=== PATIENT | male | born 1945 | race Caucasian/White ===

== ENCOUNTER → 2018-09-04 | Day surgery (SDC) | payer MEDICARE, OTHER ==
[2018-09-03 15:38] VITALS: BMI 34.2
[~2018-09-04] MED LIST: PROPOFOL 20 ML ONE; PROPOFOL 200 MG/20 ML VIAL ONE
--- NOTE | 2018-09-04 10:07 | ECHO ---
CARDIOLOGY PROCEDURE NOTE: Date: 09/04/18 PROCEDURE: Transesophageal echocardiogram. INDICATION FOR PROCEDURE: This is a 72-year-old gentleman who had recurrence of atrial fibrillation. He had been taken off his antiarrhythmic medications. He was then placed back on these medications, as well as oral anticoagula tion. He was advised to undergo a repeat cardioversion and LEYLA to determine if he had any left atrial or left atrial appendage thrombus prior to undergoing electrical cardioversion of his atrial fibrill ation. PROCEDURE DETAILS: The patient was taken to the recovery area where he was given short-acting propofol. The patient was in atrial fibrillation when beginning the procedure. The transesophageal probe was easily passed down the distal esophagus. IMPRESSION: 1. Normal left ventricular systolic function. Ejection fraction estimated at approximately 60%. 2. Mild aortic valve sclerosis. 3. Trace aortic valve regurgitation. 4. Evidence of left atrial or left atrial appendage thrombus. 5. Flow in the left atrial appendage, greater than 4 meters/second. 6. Mild mitral valve regurgitation. 7. Mild tricuspid valve regurgitation. 8. No evidence of patent foramen ovale.
--- NOTE | 2018-09-04 10:09 | OP ---
CARDIOLOGY PROCEDURE NOTE: Date: 09/04/18 PROCEDURE: Electrical cardioversion. DETAILS: This is a 72-year-old patient with history of atrial fibrillation who underwent a transesophageal ech ocardiogram and was found to have no evidence of left atrial or left atrial appendage thrombus. He wa s advised to undergo electrical cardioversion of the atrial fibrillation. Using one attempt at 250 jovana ules, the patient was successfully converted from his atrial fibrillation back to normal sinus rhythm with heart rate in the 80s. No complications or difficulties were encountered.
--- NOTE | 2018-09-04 10:11 | DIS ---
This is a 72-year-old patient with a history of recurrent atrial fibrillation who was advised to unde rgo a transesophageal echocardiogram and electrical cardioversion of his atrial fibrillation back to sinus rhythm after he was started back on his oral anticoagulation as well as antiarrhythmic medicati ons in the form of flecainide. His other diagnoses include hyperlipidemia, nephrolithiasis, degenerat elizabeth disc disease, hypertension, a deep venous thrombosis in 2017 to the right lower extremity. Discha rge diagnosis is the same. Procedures in the hospital included a transesophageal echocardiogram, as well as electrical cardiover lily of atrial fibrillation back to sinus rhythm. Discharge medications will be Avapro 150 mg q.d., Tramadol 50 mg as needed q6 hours prn, Gabapentin 3 00 mg q.a.m. up to 4 tablets, irbesartan 150 mg q.d., meloxicam 7.5 mg q.d., Xarelto 20 mg q.d., and also is taking Celebrex 1 capsule 2 times a day as needed. He also is taking digoxin 0.125 mg PO q.d. and flecainide 50 mg PO bid. The patient tolerated the procedures well today, the transesophageal echocardiogram and the electrica l cardioversion. There were no significant complications encountered. He was given short-acting propo fol for the procedure. Once he is awake and alert, he will be discharged to home without any other co mplications or difficulties expected. I will see him back in the office in the next 2-4 weeks.
--- NOTE | 2018-09-04 22:32 | EKG ---
Test Reason : POST CARDIOVERSION Blood Pressure : / mmHG Vent. Rate : 073 BPM Atrial Rate : 073 BPM P-R Int : 216 ms QRS Dur : 106 ms QT Int : 362 ms P-R-T Axes : 053 -15 029 degrees QTc Int : 398 ms Sinus rhythm with 1st degree A-V block Otherwise normal ECG No previous ECGs available Confirmed by Mark ANTONIO ([id number]) on 09/04/2018 10:32:11 PM Referred By: PACO Confirmed By:Mark ANTONIO
== END ==
LOC: CCL 06:49
PROVIDERS: ATTEND Internal Medicine Cardiovascular Disease
PROC: 5A2204Z Restoration of Cardiac Rhythm, Single (ICD-10-PCS; principal; 2018-09-04)
PROC: B246ZZ4 Ultrasonography of Right and Left Heart, Transesophageal (ICD-10-PCS; 2018-09-04)
DX: I48.0 Paroxysmal atrial fibrillation (principal); I35.8 Other nonrheumatic aortic valve disorders; I36.1 Nonrheumatic tricuspid (valve) insufficiency; I34.0 Nonrheumatic mitral (valve) insufficiency; I10 Essential (primary) hypertension; E78.2 Mixed hyperlipidemia; M19.90 Unspecified osteoarthritis, unspecified site; Z87.442 Personal history of urinary calculi; Z96.652 Presence of left artificial knee joint; Z90.89 Acquired absence of other organs; Z88.5 Allergy status to narcotic agent; Z79.01 Long term (current) use of anticoagulants; Z79.899 Other long term (current) drug therapy; Z98.890 Other specified postprocedural states
CPT/HCPCS: 92960; 93005; 93010; 93312; J2704

== ENCOUNTER 2019-05-17 11:00 | Day surgery (SDC) | payer MEDICARE, OTHER ==
[2019-05-16 10:15] VITALS: BMI 31.1
[2019-05-17 12:05] LABS: #Eosinphils 0.5 thou/uL (0.0-0.7); #Lymphocytes 1.6 thou/uL (1.20-3.40); #Monocytes 0.5 thou/uL (0.11-0.59); #Neutrophils 4.7 thou/uL (1.40-6.50); %Basophils 0.5 % (0.0-1.0); %Eosinophils 6.8 % (0.0-10.0); %Lymphocytes 21.6 % (21.0-51.0); %Monocytes 6.3 % (0.0-10.0); %Neutrophils 64.8 % (42.0-75.0); Hemoglobin 14.8 g/dL (14.0-18.0); Mean Corpuscular HGB CONC 33.5 g/dL (32.0-36.0); Mean Corpuscular Hemoglobin 30.4 pg (27.0-31.0); Mean Corpuscular Volume 90.8 fL (78.0-98.0); Mean Platelet Volume 8.1 fL (7.4-10.4); Platelet Count 163 thou/uL (130-400); RBC Distribution Width 13.3 % (11.5-14.5); Red Blood Cell (RBC) Count 4.87 mill/uL (4.70-6.10); White Blood Cell (WBC) Count 7.3 thou/uL (4.8-10.8)
[2019-05-17 12:21] LABS: Anion Gap 12 mmol/L (10-20); BUN (Urea Nitrogen) 22 mg/dL (8.4-25.7); Calc. Creatinine Clearance 82 mL/min (70-130); Calcium 9.8 mg/dL (7.8-10.44); Carbon Dioxide 25 mmol/L (23-31); Chloride 104 mmol/L (98-107); Estimated GFR-MDRD 61; Glucose 90 mg/dL (83-110); Potassium 4.9 mmol/L (3.5-5.1); Sodium 136 mmol/L (136-145)
[2019-05-17] MEDS ORDERED: PROPOFOL 20 ML ONE (12:23)
--- NOTE | 2019-05-17 15:59 | OP ---
DATE OF PROCEDURE: 05/17/19 SURGEON: Adriana Rodriguez M.D. PREOPERATIVE DIAGNOSIS: Atrial fibrillation. PROCEDURE: Electrical cardioversion. INDICATION FOR PROCEDURE: This is a 73-year-old gentleman with atrial fibrillation. Was advised to undergo electrical cardiover lily for the atrial fibrillation. He has been on medical management with anticoagulation as well as f lecainide and digoxin. CARDIOVERSION The patient was brought to the recovery area today where he underwent short acting propofol. Using one attempt at 200 joules, he was successfully converted from his atrial fibrillation back to n ormal sinus rhythm. There were no complications or difficulties encountered. The patient tolerated th e procedure well.
--- NOTE | 2019-05-18 03:19 | DIS ---
DATE OF ADMISSION: 05/17/2019 DATE OF DISCHARGE: 05/17/2019 Date of his outpatient procedure was 05/17/2019. He was brought in as an outpatient to undergo electrocardioversion of atrial fibrillation. ADMITTING DIAGNOSES: Include degenerative joint disease, hyperlipidemia, history of nephrolithiasis, osteoarthritis, history of hypertension, and history of DVT in the past. DISCHARGE DIAGNOSES: Include degenerative joint disease, hyperlipidemia, history of nephrolithiasis, osteoarthritis, history of hypertension, and history of DVT in the past. He underwent successful electrocardioversion of atrial fibrillation. PROCEDURE: Electrocardioversion externally of his atrial fibrillation back to normal sinus rhythm using one attempt at 200 joules. He was successfully converted back to sinus rhythm with a heart rate in the 60s. DISCHARGE MEDICATIONS: Include; 1. Avapro 150 mg once a day. 2. Tramadol 50 mg once every 6 hours p.r.n. as needed. 3. Gabapentin 300 mg once in the morning and he takes 4 tablets by mouth in the evening. 4. Meloxicam 7.5 mg once a day. 5. Flecainide 50 mg b.i.d. 6. Xarelto 20 mg once a day with an evening meal. 7. Digoxin 0.25 mg daily. FOLLOWUP: His followup will be with me in the next 2-4 weeks in the office. He will continue his routine followup with his primary care physician, Dr. Sean Phelps. HOSPITAL COURSE: This very pleasant gentleman was found to have been in the office for routine followup for his atrial fibrillation. He was found to be in atrial fibrillation at his last office in the end of March and he had some hematuria as well as hematochezia. He was in the emergency room and has had not any problems since that time, but was in atrial fibrillation. He was advised to undergo electrocardioversion of atrial fibrillation. This was performed with no difficulties or complications using short acting propofol at one attempt at 200 joules. He was successfully converted back to sinus rhythm. We will continue the present medications. We will see him back in the office. Hopefully, he will maintain sinus rhythm. Job ID: [id number]
== END 2019-05-17 14:40 | disposition home or self-care (01) ==
LOC: SDC 11:00
PROVIDERS: ATTEND Internal Medicine Cardiovascular Disease
PROC: 5A2204Z Restoration of Cardiac Rhythm, Single (ICD-10-PCS; principal; 2019-05-17)
DX: I48.91 Unspecified atrial fibrillation (principal); M19.90 Unspecified osteoarthritis, unspecified site; E78.5 Hyperlipidemia, unspecified; I10 Essential (primary) hypertension; Z79.01 Long term (current) use of anticoagulants; Z79.899 Other long term (current) drug therapy; Z86.718 Personal history of other venous thrombosis and embolism; Z87.442 Personal history of urinary calculi; Z88.6 Allergy status to analgesic agent; Z88.5 Allergy status to narcotic agent
CPT/HCPCS: 80048; 85025; 92960; 93005; 93010; J2704

== ENCOUNTER 2019-08-14 09:13 | Observation (INO) | payer MEDICARE, OTHER ==
[2019-08-13 13:32] VITALS: BMI 30.9
[2019-08-14 10:19] LABS: #Basophils 0.1 thou/uL (0.0-0.2); #Eosinphils 0.6 thou/uL (0.0-0.7); #Lymphocytes 1.4 thou/uL (1.20-3.40); #Monocytes 0.5 thou/uL (0.11-0.59); #Neutrophils 4.6 thou/uL (1.40-6.50); %Basophils 0.9 % (0.0-1.0); %Eosinophils 8.3 % (0.0-10.0); %Lymphocytes 19.8 % (21.0-51.0); %Monocytes 7.2 % (0.0-10.0); %Neutrophils 63.8 % (42.0-75.0); Hemoglobin 14.5 g/dL (14.0-18.0); Mean Corpuscular Hemoglobin 31.3 pg (27.0-31.0); Mean Corpuscular Volume 92.1 fL (78.0-98.0); Mean Platelet Volume 8.2 fL (7.4-10.4); Platelet Count 158 thou/uL (130-400); RBC Distribution Width 12.6 % (11.5-14.5); Red Blood Cell (RBC) Count 4.63 mill/uL (4.70-6.10); White Blood Cell (WBC) Count 7.2 thou/uL (4.8-10.8)
[2019-08-14 10:25] LABS: INR-International Normal Ratio 1.2; Prothrombin Time 15.6 SEC (12.0-14.7)
[2019-08-14 10:26] LABS: PTT 38.3 SEC (22.9-36.1)
[2019-08-14 10:27] LABS: Anion Gap 13 mmol/L (10-20); BUN (Urea Nitrogen) 31 mg/dL (8.4-25.7); Calc. Creatinine Clearance 73 mL/min (70-130); Calcium 9.4 mg/dL (7.8-10.44); Carbon Dioxide 20 mmol/L (23-31); Chloride 108 mmol/L (98-107); Estimated GFR-MDRD 54; Glucose 119 mg/dL (83-110); Potassium 4.3 mmol/L (3.5-5.1); Sodium 137 mmol/L (136-145)
[2019-08-14] MEDS ORDERED: Heparin 10,000 UNITS/1 ML VIAL ONE ×3 (10:46→12:54)
[2019-08-14] MEDS ORDERED: Heparin 25,000 units/D5W 500 ML ONE (10:46)
[2019-08-14] MEDS ORDERED: Isoproterenol 0.2 MG/1 ML AMP ONE (10:46)
[2019-08-14] MEDS ORDERED: Succinylcholine Chloride 20 MG/ML 10 ml SYRINGE FS ONE (10:47)
[2019-08-14] MEDS ORDERED: Lidocaine 1% PF 5 ML VIAL ONE ×2 (10:47)
[2019-08-14] MEDS ORDERED: PROPOFOL 200 MG/20 ML VIAL ONE (10:47)
[2019-08-14] MEDS ORDERED: Glycopyrrolate 0.2 MG/ML 5 ML SYRINGE ONE (10:47)
[2019-08-14] MEDS ORDERED: Ondansetron PF 4 MG/2 ML Vial ONE (10:47)
[2019-08-14] MEDS ORDERED: Metoclopramide HCl 10 MG/2 ML VIAL ONE (10:47)
[2019-08-14] MEDS ORDERED: Rocuronium Bromide 10 MG/ML (10ML VIAL) ONE (10:47)
[2019-08-14] MEDS ORDERED: Fentanyl 100 MCG/2 ML VIAL ONE ×3 (11:12→16:50)
[2019-08-14] MEDS ORDERED: SUGAMMADEX SODIUM 200 MG/2 ML VIAL ONE (12:45)
[2019-08-14] MEDS ORDERED: Protamine Sulfate 50 MG/5 ML VIAL ONE ×2 (14:30→15:13)
--- NOTE | 2019-08-14 16:36 | OP ---
DATE OF PROCEDURE: 08/14/2019 PROCEDURES PERFORMED: Electrophysiology study and radiofrequency ablation. REASON FOR PROCEDURE: Mr. Antunez is a very pleasant 73-year-old gentleman with prior history of paroxysmal, more recently persistent atrial fibrillation despite flecainide. He underwent a LEYLA prior to procedure, demonstrating no intracardiac clots, left atrial size about 4.3 cm. DESCRIPTION OF PROCEDURE: The patient received general anesthesia by Anesthesia specialist. After adequate level of sedation achieved, the left and right femoral veins were cannulated under ultrasound guidance. On the left femoral vein, an 11-British sheath was used to advance an intracardiac echocardiogram probe to the right atrium, which was used to monitor the pericardial space, catheter manipulation throughout the procedure as well as a transseptal puncture. Also from the left femoral vein, a Preface sheath was used to advance a 20-pole catheter to the right atrium and CS position. From the right side initially, two 8-British short sheaths were used to advanced a ThermoCool SFST catheter to the right atrium and 3D map of the right atrium, His bundle, and CS positions were obtained. Following that, the short sheath was exchanged to two SL1 transseptal sheaths, which were used to perform a transseptal puncture with the help of a powered Jenkins needle under ultrasound and fluoroscopic monitoring. IV heparin was initiated in a bolus and drip fashion prior to the puncture and it was given throughout the procedure to keep ACT over 350. Following that, through the SL1 sheath, a ThermoCool SFST catheter advanced to the left atrium as well as a 20-pole Lasso catheter as well. 3D map of the left atrium was obtained. Pulmonary venous isolation procedure as well as posterior wall isolation was performed utilizing wide area circumferential ablation around the veins as well as a roof line and then inferoposterior line to isolate the posterior wall. Throughout the posterior wall ablations, esophageal temperature was monitored closely and if any heating occurred, additional irrigation was performed in the area. At the end of the case, we achieved four-vein pulmonary vein isolation and posterior wall isolation. The patient remained in atrial fibrillation. Cardioversion was performed at this point, achieving sinus rhythm. Isuprel was initiated. Also, the ablation catheter advanced to the left ventricle, and left ventricular pacing was performed, ruling out accessory pathway. No VA conduction was noted. Also, basic EP study was performed at this point and following findings were noted. HV interval was 45 milliseconds, AH 144 milliseconds, QRS is narrow. The VA conduction not present. AV Wenckebach cycle is 280 millisecond. No definite dual AV nicole physiology was seen. Burst atrial pacing down to 180 milliseconds did not reinduce atrial arrhythmias. At this point, the catheter and sheaths were removed from the left side. Heparin was stopped. The heparin was also reversed with protamine administration. The long sheaths were exchanged for short sheaths and Vascade closure was performed under ultrasound guidance in all 4 femoral venous access sites. The patient left the labor mediator with no obvious complications and was hemodynamically stable. A total of 22 minutes and 39 seconds ablation was delivered with total of 53 separate lesions. 40 page of energy were used throughout the procedure. CONCLUSION: 1. Successful isolation of all 4 pulmonary veins with wide area circumferential lesions. 2. Posterior wall isolation with roof line and inferoposterior line also achieved. 3. Sinus rhythm achieved with cardioversion, and atrial fibrillation and other atrial arrhythmias were not re-inducible with burst atrial pacing, on and off Isuprel. 4. Any reconnections were re-ablated on Isuprel. 5. No evidence of accessory pathway. 6. Normal AV nicole and His-Purkinje function and sinus nicole function noted. PLAN: Continue oral anticoagulation. Stop flecainide. Monitor for recurrent atrial arrhythmias. Job ID: [id number]
[2019-08-14] MEDS ORDERED: traMADol HCl 50 MG TAB PO PRN (16:37)
[2019-08-14] MEDS ORDERED: Acetaminophen 500 MG TAB PO PRN (16:39)
[2019-08-14] MEDS ORDERED: Acetaminophen/Codeine 30-300mg Tablet PO PRN ×2 (16:45)
[2019-08-14] MEDS ORDERED: Gabapentin 300 MG CAP PO PRN (16:46)
[2019-08-14] MEDS ORDERED: Rivaroxaban 10 MG TAB PO SCH (17:00)
[2019-08-14] MEDS ORDERED: Gabapentin 400 MG CAP PO SCH (21:00)
--- NOTE | 2019-08-14 23:18 | ECHO ---
DATE OF PROCEDURE: 08/14/19 REFERRING PHYSICIAN: Dr. Adriana Rodriguez REASON FOR PROCEDURE: The patient is a pleasant 73-year-old gentleman with prior history of paroxysmal now persisting atria l fibrillation despite Flecainide who has no thrombus on the LEYLA in 09/04/18. Here for a planned pulmon susan venous isolation procedure. He has been on Xarelto but had a three day interruption with ongoing A-fib and hence LEYLA to rule out intracardiac clots. PROCEDURE: The patient received Propofol by Anesthesia specialist. After adequate level of sedation achieved, a standard transesophageal echocardiogram probe was passed into the esophagus without diff iculty. Patient tolerated the procedure well, no complications noted. RESULTS: Left atrium is moderately enlarged about 4.3 cm in horizontal diameter. The left atrial appendage we ll visualized contains no clots. The left atrial appendage velocities up to 50 cm per second, which i s adequate. Four out of four pulmonary veins were well seen. The interatrial septum is free of defe ct. The mitral valve has no regurgitation. Aortic valve has three leaflets with mild central regurgi tation seen. Tricuspid valve and pulmonary valve is also nonregurgitant. No valve stenosis identified . Right sided chambers are normal in size. Left ventricular systolic function is preserved. Mild LVH seen. Normal chamber sizes noted otherwise. Pericardial space without effusion. The visualized porti on of ascending and descending aorta with mild dilation but no significant aneurysm, 3.5 cm in horizo ntal diameter is seen. There is also no significant atheroma noted in the ascending aorta or descendi ng aorta. CONCLUSION: 1. No intracardiac clots. 2. Moderate left atrial enlargement. 3. Mild aortic regurgitation. No other valvular heart disease. 4. Normal left ventricular systolic function with mild LVH only. PLAN: Proceed with the ablation.
[2019-08-15 08:25] VITALS: BP 134/82; TEMP 98.2
[2019-08-15] MEDS ORDERED: Meloxicam 7.5 MG TAB PO SCH (09:00)
[2019-08-15] MEDS ORDERED: Losartan 25 MG TAB PO SCH (09:00)
[2019-08-15] MEDS ORDERED: Multivit, Therapeutic 1 TAB PO SCH (09:00)
[2019-08-15] MEDS ORDERED: Digoxin 0.125 MG TAB PO SCH (09:00)
--- NOTE | 2019-08-15 12:12 | EKG ---
Test Reason : Blood Pressure : / mmHG Vent. Rate : 071 BPM Atrial Rate : 071 BPM P-R Int : 204 ms QRS Dur : 108 ms QT Int : 386 ms P-R-T Axes : 039 -05 038 degrees QTc Int : 419 ms Normal sinus rhythm Normal ECG When compared with ECG of 17-MAY-2019 11:22, (Unconfirmed) Sinus rhythm has replaced Atrial fibrillation ST no longer depressed in Inferior leads Confirmed by HYUN CHING, STiffany (4) on 08/15/2019 12:12:38 PM Referred By: KARTHIKEYAN Confirmed By:DR. Michael PURVIS MD
--- NOTE | 2019-08-15 12:13 | EKG ---
Test Reason : Blood Pressure : / mmHG Vent. Rate : 077 BPM Atrial Rate : 077 BPM P-R Int : 220 ms QRS Dur : 100 ms QT Int : 356 ms P-R-T Axes : 048 -04 040 degrees QTc Int : 402 ms Sinus rhythm with 1st degree A-V block Otherwise normal ECG When compared with ECG of 14-AUG-2019 16:06, (Unconfirmed) No significant change was found Confirmed by HYUN CHING, . STiffany (4) on 08/15/2019 12:13:10 PM Referred By: [facility] Confirmed By:DR. Michael PURVIS MD
== END 2019-08-15 12:40 | disposition home or self-care (01) ==
LOC: CCL 09:13 → 2SW 16:00
PROVIDERS: ADMIT Internal Medicine Cardiovascular Disease; ATTEND Internal Medicine Cardiovascular Disease
PROC: 02583ZZ Destruction of Conduction Mechanism, Percutaneous Approach (ICD-10-PCS; principal; 2019-08-14)
PROC: B24BZZ4 Ultrasonography of Heart with Aorta, Transesophageal (ICD-10-PCS; 2019-08-14)
DX: I48.19 Other persistent atrial fibrillation (principal); I10 Essential (primary) hypertension; E78.5 Hyperlipidemia, unspecified; M19.90 Unspecified osteoarthritis, unspecified site; Z79.01 Long term (current) use of anticoagulants; Z79.1 Long term (current) use of non-steroidal anti-inflammatories (NSAID); Z79.899 Other long term (current) drug therapy; Z87.442 Personal history of urinary calculi; Z88.5 Allergy status to narcotic agent
CPT/HCPCS: 76942; 80048; 85025; 85347 ×2; 85610; 85730; 93312; 93613; 93622; 93623; 93656; 93657; 93662; C1731; C1732 ×3; C1759; C1769; 93005; 93010; G0378; J1644; J2001; J2405; J2704; J2720; J2765; J3010

== ENCOUNTER 2020-07-22 08:00 | Outpatient (CLI) | payer MEDICARE, OTHER ==
[2020-07-22 10:15] LABS: Hemoglobin 13.6 g/dL (13.5-17.5); Mean Corpuscular HGB CONC 33.3 g/dL (32.0-36.0); Mean Corpuscular Hemoglobin 30.2 pg (27.0-33.0); Mean Corpuscular Volume 90.5 fl (81.2-95.1); Mean Platelet Volume 10.1 fl (7.4-10.4); Platelet Count 145 10x3/uL (150-450); RBC Distribution Width 13.7 % (11.5-14.5); Red Blood Cell (RBC) Count 4.51 10x6/uL (4.32-5.72); White Blood Cell (WBC) Count 6.8 10x3/uL (3.5-10.5)
[2020-07-22 10:31] LABS: Anion Gap 16 mmol/L (10-20); BUN (Urea Nitrogen) 32 mg/dL (8.4-25.7); Calc. Creatinine Clearance 0 mL/min (70-130); Calcium 9.5 mg/dL (7.8-10.44); Carbon Dioxide 20 mmol/L (23-31); Chloride 106 mmol/L (98-107); Glucose 97 mg/dL (83-110); Sodium 137 mmol/L (136-145)
[2020-07-22 10:42] LABS: INR-International Normal Ratio 1.1; PTT 34.9 sec (22.0-33.0)
[2020-07-22 20:40] LABS: SARS-CoV-2 PCR by NAA Not Detected (NotDetected)
== END 2020-07-22 08:01 | disposition home or self-care (01) ==
LOC: LABBT 08:00
PROVIDERS: ATTEND Internal Medicine Cardiovascular Disease
DX: Z01.812 Encounter for preprocedural laboratory examination (principal); Z20.822 Contact with and (suspected) exposure to COVID-19; I48.91 Unspecified atrial fibrillation
CPT/HCPCS: 80048; 85027; 85610; 85730; U0003; U0005; 87635

== ENCOUNTER 2020-07-27 05:56 | Observation (INO) | payer MEDICARE, OTHER ==
[2020-07-27] MEDS ORDERED: Heparin 10,000 UNITS/ 10 ML VIAL ONE ×2 (06:47→10:43)
[2020-07-27] MEDS ORDERED: Fentanyl 100 MCG/2 ML VIAL ONE ×2 (07:21→11:32)
[2020-07-27] MEDS ORDERED: Midazolam HCl 2 mg/2 ml Vial ONE (07:21)
[2020-07-27] MEDS ORDERED: Isoproterenol 0.2 MG/1 ML AMP ONE ×2 (09:06→09:54)
[2020-07-27] MEDS ORDERED: Heparin 25,000 units/D5W 500 ML ONE (09:06)
[2020-07-27] MEDS ORDERED: Vecuronium 10 MG VIAL ONE (10:35)
[2020-07-27] MEDS ORDERED: Glycopyrrolate 0.2 MG/ML 5 ML SYRINGE ONE (10:35)
[2020-07-27] MEDS ORDERED: PHENYLEPHRINE-NS 100 MCG/ML 10 ML SYRINGE ONE (10:35)
[2020-07-27] MEDS ORDERED: Ondansetron PF 4 MG/2 ML Vial ONE (10:35)
[2020-07-27] MEDS ORDERED: Rocuronium Bromide 10 MG/ML (10ML VIAL) ONE (10:35)
[2020-07-27] MEDS ORDERED: Succinylcholine 200 MG/10 ml SYRINGE FS ONE (10:35)
[2020-07-27] MEDS ORDERED: Lidocaine 1% PF 5 ML VIAL ONE (10:35)
[2020-07-27] MEDS ORDERED: Dexamethasone 20 MG/5 ML VIAL ONE (10:35)
[2020-07-27] MEDS ORDERED: PROPOFOL 200 MG/20 ML VIAL ONE (10:35)
[2020-07-27] MEDS ORDERED: Protamine Sulfate 50 MG/5 ML VIAL ONE (10:44)
[2020-07-27] MEDS ORDERED: Acetaminophen 500 MG TAB ONE (13:43)
[2020-07-27] MEDS ORDERED: Acetaminophen 500 MG TAB PO PRN ×2 (14:01→14:16)
[2020-07-27] MEDS ORDERED: Ketorolac Tromethamine 30 MG/ML VIAL IVP PRN (14:04)
[2020-07-27] MEDS ORDERED: Acetaminophen/Codeine 30-300mg Tablet PO PRN ×2 (14:15)
[2020-07-27 15:11] VITALS: BMI 31.4
[2020-07-27] MEDS: Sucralfate 1 GM TAB PO SCH ×2 (15:20→20:23)
[2020-07-27] MEDS ORDERED: Cepastat Lozenges 1 LOZ PO PRN (16:05)
[2020-07-27] MEDS ORDERED: Calcium Carbonate 500 MG ChewTAB PO PRN (16:05)
[2020-07-27] MEDS: Apixaban 5 MG TAB PO SCH (20:23)
[2020-07-27] MEDS ORDERED: Gabapentin 400 MG CAP PO SCH (21:00)
[2020-07-27] MEDS ORDERED: traMADol HCl 50 MG TAB PO PRN (21:15)
[2020-07-28] MEDS: Sucralfate 1 GM TAB PO SCH ×2 (01:15→08:50)
--- NOTE | 2020-07-28 06:58 | OP ---
DATE OF PROCEDURE: 07/27/2020 PROCEDURE PERFORMED: Electrophysiology study and radiofrequency ablation. REASON FOR PROCEDURE: Mr. Antunez is a pleasant 74-year-old man with prior history of persistent atrial fibrillation, prior PVI on 08/04/2019 performed. Since then, his atrial fibrillation burden improved, but still has some tachy-syeda episodes especially while in vacation in [place], and he was hospitalized there for tachycardia as well. He was found to have a GI bleed on Xarelto, which eventually was changed to Eliquis, which he is tolerating well now. His flecainide was stopped and has recurrent atrial fibrillation episodes since. DESCRIPTION OF PROCEDURE: The patient received general anesthesia by Anesthesia specialist. After adequate level of sedation achieved, the left and right femoral venous area was prepped and draped, anesthetized using subcutaneous lidocaine. Under ultrasound guidance, both femoral veins were cannulated x2. On the left side, an 11-Cypriot sheath and a Preface sheath were advanced to the IVC, through which an intracardiac echocardiogram probe as well as a Duo-Deca catheter was advanced to the right atrium. The intracardiac echocardiogram probe was used to monitor the catheter manipulation, the transseptal puncture, and the pericardial space throughout the procedure. On the right femoral venous access, a ThermoCool SFST catheter was advanced to the right atrium. 3D map of the right atrium was obtained, CS and His positions were marked. With the help of 3D map, the Duo Deca catheter was positioned in the CS and right atrial positions. Following that, basic EP study was performed, demonstrating the following findings. The baseline rhythm was sinus rhythm with RR interval of 60 milliseconds, VA 183 milliseconds, QRS 88 milliseconds, QT 350 milliseconds, AH 136 milliseconds and HV 43 milliseconds. AV Wenckebach cycle length was 420 milliseconds. AV nicole ERP was 600/320 milliseconds. No definite dual AV nicole physiology was demonstrated. Burst atrial pacing was able to induce atrial flutter with an atrial fibrillation both. The atrial flutter appeared to be proximal to central on the CS activation and the overdrive pacing at the cavotricuspid isthmus did short post pacing intervals similar to the tachycardia cycle length about 260 milliseconds, suggestive of a cavotricuspid isthmus dependency. Following this, IV heparin was administered in a bolus and drip fashion, which was periodically adjusted to keep ACT over 350. The right-sided sheaths were exchanged to 2 SL1 sheaths and they were used to perform a transseptal puncture under fluoroscopic and ultrasound guidance with the help of a powered [place] needle. Through the SL1 sheaths, a ThermoCool SFST and a PentaRay mapping catheter were advanced to the left atrium. Standard 3D map of the left atrium was performed. The evidence of prior ablation was clearly demonstrated by voltage mapping. The small area of reconnection was noted in the left superior, right superior and the right inferior vein as well. Also posterior wall had some reconnection mostly in the esophageal areas. Following that, all the re-connections were re-ablated and the posterior wall was re-ablated with close attention was paid to the esophageal temperature throughout the case. Following this, Isuprel administered to assess inducible arrhythmia. Burst atrial pacing repeated. Atrial flutter was inducible similar to baseline about 260 milliseconds with shortest post pacing interval after overdrive pacing was at the cavotricuspid isthmus. Also, an atypical atrial flutter was also inducible, but the pacing maneuvers converted it to atrial fibrillation and was difficult to map. This atrial fibrillation was cardioverted back to sinus rhythm. Following that and re-connections were re-ablated, Isuprel was stop and catheter was returned to the right side. The cavotricuspid isthmus ablation was performed, prolonging the transisthmus time over 120 milliseconds with the longest transisthmus time adjacent to the ablation line suggestive of at least unilateral cavotricuspid isthmus block. The typical atrial flutter was not re-inducible at the end of the case. The HV interval did not change throughout the procedure. The IV heparin was stopped after removing the catheters from the left side. The intracardiac echo and cardiac silhouette demonstrated no evidence of pericardial effusion pre and post procedure. The catheters were withdrawn from body and the long sheaths were exchanged for short sheaths after protamine administration. The short sheaths were closed with Vascade closure device under ultrasound guidance. The total ablation time was 23 minutes and 56 seconds with 76 distinct ablation lesions were delivered at 40 page. CONCLUSION: 1. Reconnection of the left superior, right superior, and right inferior veins were seen as well as a posterior wall, which were all re-ablated. 2. Inducible typical isthmus dependent atrial flutter, prompted a cavotricuspid isthmus ablation, which eliminated inducibility. 3. Atypical atrial flutter and atrial fibrillation still inducible in the end of the case, which were cardioverted. 4. Normal sinus and AV nicole function and His-Purkinje function pre and post procedure. No evidence of accessory pathways are present. PLAN: Resume oral anticoagulation. Hold antiarrhythmic agents. Monitor for recurrent atrial arrhythmias. Job ID: [id number] [facility]
[2020-07-28 08:01] VITALS: BP 156/86; TEMP 97.9
[2020-07-28] MEDS: Apixaban 5 MG TAB PO SCH (08:49)
[2020-07-28] MEDS ORDERED: Multivit, Therapeutic 1 TAB PO SCH (09:00)
[2020-07-28] MEDS ORDERED: Lisinopril 5 MG TAB PO SCH (09:00)
[2020-07-28] MEDS ORDERED: Meloxicam 7.5 MG TAB PO SCH (09:00)
[2020-07-28] MEDS ORDERED: Digoxin 0.125 MG TAB PO SCH (09:00)
[2020-07-28] MEDS ORDERED: Cholecalciferol 1,000 UNITS (25 MCG) TAB PO SCH (09:00)
--- NOTE | 2020-07-28 17:13 | PDOC.DS.DS ---
Provider Date of Admission: 07/27/20 06:42 Date of Discharge: 07/28/20 Admitting Provider: George Ruiz MD Consultations: None Primary Care Physician: Carlton Stanton MD Course Hospital Course: Mr. Antunez is a pleasant 74-year-old man with prior history of persistent atrial fibrillation, prior PVI on 08/04/2019 performed. Since then, his atrial fibrillation burden improved, but still has some tachy-syeda episodes especially while in vacation in [place], and he was hospitalized there for tachycardia as well. He was found to have a GI bleed on Xarelto, which eventually was changed to Eliquis, which he is tolerating well now. His flecainide was stopped and has recurrent atrial fibrillation episodes since. He was admitted for an elective EP study with repeat atrial ablation. there been no post ablation complications. His vital signs are stable and he feels well this morning. . He is eager to discharge home. He denies any shortness of breath, heart racing / palpitations, bleeding at his groin sites. He is voiding, eating and drinking normally. Procedures: EP study with ablation pre isolating the left superior and right pulmonary veins in addition to the posterior wall. Also inducible for typical atrial flutter status post CTI modification Vitals: Vital Signs (12 hours) Temp Pulse Resp BP Pulse Ox 07/28/20 08:50 61 07/28/20 08:00 97.9 F 61 16 156/86 H 98 Weight Weight 215 lb 1 oz Physical Exam: The patient was seen and examined on the day of discharge. General Appearance: NAD, awake alert Eye: PERRL, anicteric sclera ENT: normocephalic atraumatic, no oropharyngeal lesions, moist mucosa Neck: supple, symmetric, no JVD Respiratory: CTAB, no wheezes, no rales, no ronchi Cardiovascular: RRR, no murmur, no gallops, no rubs, normal peripheral pulses Gastrointestinal: soft, non-tender, non-distended Extremities: no cyanosis, no clubbing, no edema Skin: normal turgor, no lesions, no rashes Skin - other findings: bilateral groin sites are stable with no evidence of bleeding or hematoma Neurological: cranial nerve grossly intact, normal sensation to touch, no weakness, no focal deficits Musculoskeletal: normal tone, normal strength, no muscle wasting PSYCH: normal affect, normal behavior, A&O x 3 Problem Assessment: 1. persistent atrial fibrillation 2. HTN 3. OAC with eliquis Remains in SR overnight post ablation. BP slightly elevated. Stop digoxin, Increase toprol XL to 25mg BID. DC home. Continue eliquis. Resume flecainide if ERAF seen. 6 week follow up arranged. Plan Prescriptions: RX: Sucralfate [Carafate] 1 gm PO Q6H #56 tab Potassium Chloride [K-Dur] 20 meq PO DAILY PRN #7 tab PRN Reason: Edema RX: Furosemide [Lasix] 40 mg PO DAILY PRN #7 tab PRN Reason: Edema RX: Pantoprazole [Protonix] 40 mg PO DAILY #15 tab Home Medications: Medication Instructions Recorded Confirmed Type RX: Gabapentin 1,200 mg PO HS 09/03/18 07/27/20 History RX: traMADol HCl [Tramadol HCl] 1 tab PO Q8HR PRN 09/03/18 07/27/20 History RX: Cholecalciferol (Vitamin D3) 2,000 tab PO DAILY 05/17/19 07/27/20 History [Vitamin D] RX: Gabapentin 300 mg PO QAM PRN 05/17/19 07/27/20 History RX: Multivitamin [Multi-Vitamin 1 tablet PO DAILY 05/17/19 07/27/20 History Daily] RX: Acetaminophen [Tylenol Extra 1,000 mg PO Q6HR PRN 08/13/19 07/27/20 History Strength] RX: Meloxicam [Mobic] 7.5 mg PO DAILY 08/14/19 07/27/20 History RX: Apixaban [Eliquis] 5 mg PO BID 07/24/20 07/27/20 History RX: Lisinopril 5 mg PO DAILY 07/24/20 07/27/20 History Potassium Chloride [K-Dur] 20 meq PO DAILY PRN #7 tab 07/28/20 Rx RX: Furosemide [Lasix] 40 mg PO DAILY PRN #7 tab 07/28/20 Rx RX: Metoprolol Succinate 25 mg PO BID #0 07/28/20 07/27/20 Rx RX: Pantoprazole [Protonix] 40 mg PO DAILY #15 tab 07/28/20 Rx RX: Sucralfate [Carafate] 1 gm PO Q6H #56 tab 07/28/20 Rx Allergies: codeine Allergy (Verified 07/27/20 13:39) Discharge Instructions:: Please see TCA post ablation DC packet provided by your nurse. Activity:: Activity Restrictions Nourishment:: Heart Healthy Diet Referrals: George Ruiz MD [Safety Associate] - (Please follow up as discussed with MD. ) Unknown,Unknown [MD Not on Staff] - 7 Days (Please follow up with PCP in one week. ) Disposition: HOME Quality CORE MEASURES:: N/A Did you prescribe anticoagulant for A Fib/Flutter?: Yes
== END 2020-07-28 11:44 | disposition home or self-care (01) ==
LOC: CCL 05:56 → 2NO 06:42
PROVIDERS: ADMIT Internal Medicine Cardiovascular Disease; ATTEND Internal Medicine Cardiovascular Disease
PROC: 02583ZZ Destruction of Conduction Mechanism, Percutaneous Approach (ICD-10-PCS; principal; 2020-07-27)
PROC: 4A023FZ Measurement of Cardiac Rhythm, Percutaneous Approach (ICD-10-PCS; 2020-07-27)
PROC: 4A0234Z Measurement of Cardiac Electrical Activity, Percutaneous Approach (ICD-10-PCS; 2020-07-27)
PROC: 02K83ZZ Map Conduction Mechanism, Percutaneous Approach (ICD-10-PCS; 2020-07-27)
DX: I48.19 Other persistent atrial fibrillation (principal); I48.4 Atypical atrial flutter; I10 Essential (primary) hypertension; Z79.01 Long term (current) use of anticoagulants; Z79.1 Long term (current) use of non-steroidal anti-inflammatories (NSAID); Z79.899 Other long term (current) drug therapy; Z88.5 Allergy status to narcotic agent
CPT/HCPCS: 76942; 85347 ×2; 92960; 93005; 93613; 93623; 93655; 93656; 93657; 93662; C1732 ×2; C1759; C1884; 93010; J1100; J1644; J2250; J2405; J2704; J2720; J3010

== ENCOUNTER 2021-04-27 07:17 | Outpatient (CLI) | payer MEDICARE, OTHER | END 2021-04-27 07:18 | disposition home or self-care (01) | LOC: CT 07:17 | PROVIDERS: ATTEND Anesthesiology Pain Medicine | DX: M47.816 Spondylosis without myelopathy or radiculopathy, lumbar region (principal); M43.16 Spondylolisthesis, lumbar region | CPT/HCPCS: 72100; 72131 ==

== ENCOUNTER 2021-05-13 13:21 | Outpatient (CLI) | payer MEDICARE, OTHER ==
[2021-05-13 14:35] LABS: Hemoglobin 11.1 g/dL (13.5-17.5); Mean Corpuscular HGB CONC 31.7 g/dL (32.0-36.0); Mean Corpuscular Hemoglobin 25.3 pg (27.0-33.0); Mean Corpuscular Volume 79.9 fl (81.2-95.1); Platelet Count 210 10x3/uL (150-450); RBC Distribution Width 17.7 % (11.5-14.5); Red Blood Cell (RBC) Count 4.38 10x6/uL (4.32-5.72); White Blood Cell (WBC) Count 7.2 10x3/uL (3.5-10.5)
[2021-05-13 14:48] LABS: Anion Gap 13 mmol/L (10-20); BUN (Urea Nitrogen) 33 mg/dL (8.4-25.7); Calc. Creatinine Clearance 0 mL/min (70-130); Calcium 9.5 mg/dL (7.8-10.44); Carbon Dioxide 23 mmol/L (23-31); Chloride 108 mmol/L (98-107); Glucose 69 mg/dL (83-110); Potassium 5.1 mmol/L (3.5-5.1); Sodium 139 mmol/L (136-145)
[2021-05-13 14:57] LABS: INR-International Normal Ratio 1.1; PTT 27.7 sec (22.0-33.0); Prothrombin Time 11.7 sec (9.5-12.1)
[2021-05-14 11:22] LABS: SARS-CoV-2 PCR by NAA Not Detected (NotDetected)
== END 2021-05-13 13:22 | disposition home or self-care (01) ==
LOC: LABBT 13:21
PROVIDERS: ATTEND Surgery
DX: Z01.812 Encounter for preprocedural laboratory examination (principal); Z20.822 Contact with and (suspected) exposure to COVID-19
CPT/HCPCS: 80048; 85027; 85610; 85730; 86850; 86900; 86901; U0003; U0005

== ENCOUNTER 2021-05-18 07:45 | Inpatient (IN) | payer MEDICARE, OTHER ==
[2021-05-18] MEDS ORDERED: Albumin 5% 500 ML ONE (10:27)
[2021-05-18] MEDS ORDERED: Fentanyl 250 MCG/5 ML VIAL ONE (10:27)
[2021-05-18] MEDS ORDERED: Dexmedetomidine 200 MCG/2 ML VIAL ONE (10:27)
[2021-05-18] MEDS ORDERED: ceFAZolin 2 GM/DEX 5% 100 ML BAG ONE (10:32)
[2021-05-18] MEDS ORDERED: Thrombin 5000 UNITS/5 ML VIAL ONE ×3 (10:37→14:20)
[2021-05-18] MEDS ORDERED: Ondansetron PF 4 MG/2 ML Vial ONE (11:07)
[2021-05-18] MEDS ORDERED: ePHEDrine 50 MG/ML VIAL ONE (11:07)
[2021-05-18] MEDS ORDERED: Calcium Chloride 1 GM/10 ML Abboject SYRINGE ONE (11:07)
[2021-05-18] MEDS ORDERED: Dexamethasone 20 MG/5 ML VIAL ONE (11:07)
[2021-05-18] MEDS ORDERED: Rocuronium Bromide 10 MG/ML (10ML VIAL) ONE (11:07)
[2021-05-18] MEDS ORDERED: PROPOFOL 200 MG/20 ML VIAL ONE (11:07)
[2021-05-18] MEDS ORDERED: Glycopyrrolate 0.2 MG/ML 5 ML SYRINGE ONE (11:07)
[2021-05-18] MEDS ORDERED: Lidocaine 1% PF 5 ML VIAL ONE (11:07)
[2021-05-18 14:01] LABS: Hemoglobin 10.3 g/dL (14.0-18.0)
[2021-05-18] MEDS ORDERED: Rocuronium Bromide 50 MG/5 ML VIAL ONE (15:12)
[2021-05-18] MEDS ORDERED: Hydrocortisone Sod Succ/PF 100 mg/2 ml Vial ONE (15:12)
[2021-05-18] MEDS ORDERED: SUGAMMADEX SODIUM 200 MG/2 ML VIAL ONE (15:49)
[2021-05-18 16:08] LABS: Hemoglobin 11.5 g/dL (14.0-18.0)
[2021-05-18] MEDS ORDERED: Promethazine HCl 25 MG/ML VIAL IM PRN (16:58)
[2021-05-18] MEDS ORDERED: Promethazine HCl 25 MG/ML VIAL IVPB PRN (16:58)
[2021-05-18] MEDS ORDERED: HYDROmorphone 2 MG/ML VIAL SLOW IVP PRN (16:58)
[2021-05-18] MEDS ORDERED: Ondansetron HCl/PF 4 MG/2 ML Vial IVP PRN (16:58)
[2021-05-18] MEDS ORDERED: Morphine 4 MG/ML VIAL SLOW IVP PRN (17:00)
[2021-05-18] MEDS ORDERED: Fentanyl 100 MCG/2 ML VIAL ONE (17:02)
[2021-05-18] MEDS ORDERED: Ondansetron PF 4 MG/2 ML Vial IVP PRN (17:04)
[2021-05-18] MEDS ORDERED: HYDROmorphone 2 MG/ML VIAL ONE (17:11)
[2021-05-18] MEDS ORDERED: hydrALAZINE 20 MG/ML VIAL SLOW IVP PRN (17:13)
[2021-05-18] MEDS ORDERED: tiZANidine HCl 4 MG TAB ONE (17:28)
[2021-05-18] MEDS: tiZANidine HCl 4 MG TAB PO PRN (17:31)
[2021-05-18 17:53] LABS: Hemoglobin 11.3 g/dL (14.0-18.0)
[2021-05-18] MEDS ORDERED: ceFAZolin 2 GM/Dextrose 50 ML 2 GM in Premix Bag 1 BAG IVPB SCH (18:00)
[2021-05-18] MEDS: Gabapentin 300 MG CAP PO SCH (20:16)
[2021-05-18] MEDS: HYDROcodone/Acetaminophen 7.5/325 mg Tablet PO PRN (20:17)
[2021-05-18] MEDS: Sodium Chloride 0.9% 1,000 ML IV SCH (20:18)
[2021-05-18 21:20] VITALS: BMI 29.9
[2021-05-18] MEDS: traMADol HCl 50 MG TAB PO PRN (23:37)
[2021-05-19] MEDS: ceFAZolin 2 GM/Dextrose 50 ML 2 GM in Premix Bag 1 BAG IVPB SCH ×3 (01:45→19:14)
[2021-05-19] MEDS: tiZANidine HCl 4 MG TAB PO PRN (01:45)
[2021-05-19] MEDS: HYDROcodone/Acetaminophen 7.5/325 mg Tablet PO PRN ×4 (02:15→23:30)
[2021-05-19] MEDS ORDERED: Sodium Chloride 0.9% 1,000 ML IV SCH (04:45)
[2021-05-19 05:05] LABS: #Monocytes 1.3 thou/uL (0.11-0.59); #Neutrophils 13.3 thou/uL (1.40-6.50); %Basophils 0.1 % (0.0-1.0); %Lymphocytes 6.4 % (21.0-51.0); %Monocytes 8.4 % (0.0-10.0); %Neutrophils 85.1 % (42.0-75.0); Hemoglobin 10.3 g/dL (14.0-18.0); Mean Corpuscular HGB CONC 33.1 g/dL (32.0-36.0); Mean Corpuscular Hemoglobin 26.8 pg (27.0-31.0); Mean Corpuscular Volume 80.9 fL (78.0-98.0); Mean Platelet Volume 9.2 fL (7.4-10.4); Platelet Count 191 thou/uL (130-400); RBC Distribution Width 16.4 % (11.5-14.5); Red Blood Cell (RBC) Count 3.85 mill/uL (4.70-6.10); White Blood Cell (WBC) Count 15.6 thou/uL (4.8-10.8)
[2021-05-19] MEDS ORDERED: Norepinephrine 8 MG/0.9% NS 250 ML IVPB SCH (05:45)
[2021-05-19 06:45] LABS: Anion Gap 14 mmol/L (10-20); BUN (Urea Nitrogen) 34 mg/dL (8.4-25.7); Calc. Creatinine Clearance 50 mL/min (70-130); Calcium 8.9 mg/dL (7.8-10.44); Carbon Dioxide 20 mmol/L (23-31); Chloride 105 mmol/L (98-107); Glucose 135 mg/dL (83-110); Potassium 6.5 mmol/L (3.5-5.1); Sodium 132 mmol/L (136-145)
[2021-05-19 07:05] LABS: #Monocytes 1.2 thou/uL (0.11-0.59); #Neutrophils 11.4 thou/uL (1.40-6.50); %Basophils 0.1 % (0.0-1.0); %Eosinophils 0.1 % (0.0-10.0); %Lymphocytes 7.5 % (21.0-51.0); %Monocytes 8.7 % (0.0-10.0); %Neutrophils 83.6 % (42.0-75.0); Mean Corpuscular HGB CONC 31.9 g/dL (32.0-36.0); Mean Corpuscular Hemoglobin 26.8 pg (27.0-31.0); Mean Corpuscular Volume 83.8 fL (78.0-98.0); Mean Platelet Volume 8.9 fL (7.4-10.4); Platelet Count 160 thou/uL (130-400); RBC Distribution Width 16.4 % (11.5-14.5); Red Blood Cell (RBC) Count 2.97 mill/uL (4.70-6.10); White Blood Cell (WBC) Count 13.6 thou/uL (4.8-10.8)
[2021-05-19 07:24] LABS: Lactic Acid 2.8 mmol/L (0.5-2.2)
[2021-05-19 07:38] LABS: ALT (SGPT) 11 U/L (8-55); AST (SGOT) 24 U/L (5-34); Albumin 2.4 g/dL (3.4-4.8); Alkaline Phosphatase 84 U/L (40-110); Anion Gap 12 mmol/L (10-20); BUN (Urea Nitrogen) 29 mg/dL (8.4-25.7); Bilirubin, Total 0.4 mg/dL (0.2-1.2); Calc. Creatinine Clearance 65 mL/min (70-130); Calcium 6.6 mg/dL (7.8-10.44); Carbon Dioxide 13 mmol/L (23-31); Chloride 116 mmol/L (98-107); Globulin 2.1 g/dL (2.4-3.5); Glucose 120 mg/dL (83-110); Potassium 4.9 mmol/L (3.5-5.1); Protein, Total 4.5 g/dL (5.8-8.1); Sodium 136 mmol/L (136-145)
[2021-05-19] MEDS ORDERED: Lisinopril 5 MG TAB PO SCH (09:00)
[2021-05-19] MEDS ORDERED: Ketorolac Tromethamine 30 MG/ML VIAL IVP PRN (09:56)
[2021-05-19] MEDS: Multivit, Therapeutic 1 TAB PO SCH (09:59)
[2021-05-19] MEDS: Cholecalciferol 1,000 UNITS (25 MCG) TAB PO SCH (09:59)
[2021-05-19] MEDS: Ketorolac Tromethamine 30 MG/ML VIAL IVP PRN ×2 (12:07→20:03)
[2021-05-19 13:18] LABS: Bilirubin Negative (Negative); Blood, Urine Negative (Negative); Clarity Clear (Clear); Glucose, Urine (Dipstick) Normal (Negative); Ketone, Urine Negative (Negative); Leukocyte 250 Leu/uL (Negative); Nitrite Negative (Negative); Protein, Urine (Dipstick) Negative (Neg-Trace); RBC/HPF 0-3 HPF (0-3); Specific Gravity, Urine 1.015 (1.002-1.036); Squamous Epithelial None Seen HPF (0-3); Urobilinogen Normal mg/dL (Less than 2)
[2021-05-19 13:19] LABS: Bacteria/HPF 1+ HPF (None Seen)
[2021-05-19] MEDS: Sodium Chloride 0.9% 1,000 ML IV SCH ×4 (14:58→23:20)
[2021-05-19] MEDS: traMADol HCl 50 MG TAB PO PRN (18:03)
[2021-05-19] MEDS: Gabapentin 300 MG CAP PO SCH (20:00)
[2021-05-20] MEDS: ceFAZolin 2 GM/Dextrose 50 ML 2 GM in Premix Bag 1 BAG IVPB SCH ×3 (02:27→17:51)
[2021-05-20 03:34] LABS: #Eosinphils 0.3 thou/uL (0.0-0.7); #Lymphocytes 1.5 thou/uL (1.20-3.40); #Neutrophils 7.1 thou/uL (1.40-6.50); %Basophils 0.4 % (0.0-1.0); %Eosinophils 2.5 % (0.0-10.0); %Lymphocytes 15.2 % (21.0-51.0); %Neutrophils 71.8 % (42.0-75.0); Hemoglobin 8.4 g/dL (14.0-18.0); Mean Corpuscular HGB CONC 33.6 g/dL (32.0-36.0); Mean Corpuscular Hemoglobin 27.4 pg (27.0-31.0); Mean Corpuscular Volume 81.6 fL (78.0-98.0); Mean Platelet Volume 9.2 fL (7.4-10.4); Platelet Count 120 thou/uL (130-400); RBC Distribution Width 16.2 % (11.5-14.5); Red Blood Cell (RBC) Count 3.05 mill/uL (4.70-6.10); White Blood Cell (WBC) Count 9.9 thou/uL (4.8-10.8)
[2021-05-20 04:10] LABS: Anion Gap 12 mmol/L (10-20); BUN (Urea Nitrogen) 36 mg/dL (8.4-25.7); Calc. Creatinine Clearance 62 mL/min (70-130); Calcium 7.9 mg/dL (7.8-10.44); Carbon Dioxide 18 mmol/L (23-31); Chloride 110 mmol/L (98-107); Glucose 124 mg/dL (83-110); Potassium 4.6 mmol/L (3.5-5.1); Sodium 135 mmol/L (136-145)
[2021-05-20] MEDS: Ketorolac Tromethamine 30 MG/ML VIAL IVP PRN ×3 (04:10→20:29)
[2021-05-20] MEDS: Sodium Chloride 0.9% 1,000 ML IV SCH ×2 (06:39→11:40)
[2021-05-20] MEDS: HYDROcodone/Acetaminophen 7.5/325 mg Tablet PO PRN ×4 (07:43→22:27)
[2021-05-20 08:18] LABS: Magnesium 1.6 mg/dL (1.6-2.6); Phosphorus 2.6 mg/dL (2.3-4.7)
[2021-05-20] MEDS: Multivit, Therapeutic 1 TAB PO SCH (09:32)
[2021-05-20] MEDS: Cholecalciferol 1,000 UNITS (25 MCG) TAB PO SCH (09:32)
[2021-05-20] MEDS: traMADol HCl 50 MG TAB PO PRN (11:37)
[2021-05-20] MEDS: Acetaminophen 325 MG TAB PO PRN ×2 (12:52→18:18)
[2021-05-20] MEDS: Gabapentin 300 MG CAP PO SCH (20:28)
[2021-05-21] MEDS: HYDROcodone/Acetaminophen 7.5/325 mg Tablet PO PRN ×4 (02:27→14:38)
[2021-05-21] MEDS: Sodium Chloride 0.9% 1,000 ML IV SCH ×2 (02:34→14:41)
[2021-05-21] MEDS: ceFAZolin 2 GM/Dextrose 50 ML 2 GM in Premix Bag 1 BAG IVPB SCH ×2 (02:48→10:32)
[2021-05-21 07:05] LABS: Anion Gap 11 mmol/L (10-20); BUN (Urea Nitrogen) 28 mg/dL (8.4-25.7); Calc. Creatinine Clearance 80 mL/min (70-130); Calcium 8.1 mg/dL (7.8-10.44); Carbon Dioxide 19 mmol/L (23-31); Chloride 110 mmol/L (98-107); Glucose 96 mg/dL (83-110); Potassium 4.2 mmol/L (3.5-5.1); Sodium 136 mmol/L (136-145)
[2021-05-21] MEDS: Cholecalciferol 1,000 UNITS (25 MCG) TAB PO SCH (08:33)
[2021-05-21] MEDS: Multivit, Therapeutic 1 TAB PO SCH (08:33)
[2021-05-21] MEDS ORDERED: Gabapentin 300 MG CAP PO SCH ×2 (09:00→12:00)
[2021-05-21 09:17] VITALS: BP 130/78; TEMP 98.1
== END 2021-05-21 15:19 | DRG 453 ==
LOC: SDC 07:45 → SURG A 17:03 → CCU 05-19 05:46 → SURG A 05-20 19:46
PROVIDERS: ADMIT Surgery; ATTEND Surgery
PROC: 0SG0071 Fusion of Lumbar Vertebral Joint with Autologous Tissue Substitute, Posterior Approach, Posterior Column, Open Approach (ICD-10-PCS; 2021-05-18)
PROC: 0SG00AJ Fusion of Lumbar Vertebral Joint with Interbody Fusion Device, Posterior Approach, Anterior Column, Open Approach (ICD-10-PCS; 2021-05-18)
PROC: 01NB0ZZ Release Lumbar Nerve, Open Approach (ICD-10-PCS; 2021-05-18)
PROC: 0SB20ZZ Excision of Lumbar Vertebral Disc, Open Approach (ICD-10-PCS; 2021-05-18)
PROC: 30233N1 Transfusion of Nonautologous Red Blood Cells into Peripheral Vein, Percutaneous Approach (ICD-10-PCS; principal; 2021-05-19)
PROC: 3E033XZ Introduction of Vasopressor into Peripheral Vein, Percutaneous Approach (ICD-10-PCS; 2021-05-19)
DX: M43.16 Spondylolisthesis, lumbar region (principal); T81.19XA Other postprocedural shock, initial encounter; E87.2 Acidosis; N17.9 Acute kidney failure, unspecified; Z20.822 Contact with and (suspected) exposure to COVID-19; M48.05 Spinal stenosis, thoracolumbar region; I48.91 Unspecified atrial fibrillation; M19.90 Unspecified osteoarthritis, unspecified site; T42.8X5A Adverse effect of antiparkinsonism drugs and other central muscle-tone depressants, initial encounter; D64.9 Anemia, unspecified; I10 Essential (primary) hypertension; G89.29 Other chronic pain; Z88.5 Allergy status to narcotic agent; Y84.8 Other medical procedures as the cause of abnormal reaction of the patient, or of later complication, without mention of misadventure at the time of the procedure
CPT/HCPCS: 36415; 36416; 36430; 76000; 76770; 80048; 81001; 83605; 83735; 84100; 84484; 85014; 85018; 85025; 86850; 86900; 86901; 87040; 87086; 93005; 93010; 93970; C1713; C1768; C1776; J0690; J1100; J1170; J1720; J1885; J2405; J2704; J3010; J3370; J3490; J7050; P9016; P9045

== ENCOUNTER 2022-04-05 08:32 | Outpatient (CLI) | payer MEDICARE, OTHER ==
[2022-04-05] MEDS ORDERED: Magnevist 469MG/ML 20 ML VIAL ONE (09:02)
== END 2022-04-05 08:33 | disposition home or self-care (01) ==
LOC: TBSIIMAG 08:32
PROVIDERS: ATTEND Surgery
DX: M47.26 Other spondylosis with radiculopathy, lumbar region (principal); M48.061 Spinal stenosis, lumbar region without neurogenic claudication; Z98.890 Other specified postprocedural states
CPT/HCPCS: 72100; 72158

== ENCOUNTER 2023-03-15 08:13 | Outpatient (CLI) | payer MEDICARE, OTHER | END 2023-03-15 08:14 | disposition home or self-care (01) | LOC: BICCT 08:13 | PROVIDERS: ATTEND Surgery | DX: M54.50 Low back pain, unspecified (principal); R29.818 Other symptoms and signs involving the nervous system; J34.89 Other specified disorders of nose and nasal sinuses; M47.816 Spondylosis without myelopathy or radiculopathy, lumbar region | CPT/HCPCS: 70450; 72120 ==